=== PATIENT | male | born 1960 | race Caucasian/White ===

== ENCOUNTER → 2016-10-22 | Outpatient (CLI) | payer BC ==
[2015-11-18 01:55] VITALS: BP 143/90
--- NOTE | 2016-10-22 11:31 | CT ---
HISTORY: Low back pain, hematuria, left lower quadrant pain. Study: CT abdomen and pelvis without contrast Comparison: None. Technique: Multiple axial images of the abdomen and pelvis were obtained from the lung bases to the pubic symph ysis without the administration of IV contrast. Dose reduction techniques including Automated Expos ure Control (AEC) and adjustment of mA and kV were utilized. Findings: Calcified pulmonary nodules within the posterior right lower lobe consistent with old granulomatous disease. Otherwise, the visualized portions of the lung bases are unremarkable. Too small to charac terize hypodense lesions within the liver. The visualized liver otherwise appears normal. The pancre as, spleen, adrenal glands, and left kidney appear normal. Marked perinephric stranding is seen abou t the right kidney with mild hydronephrosis and hydroureter ureter. There is a 5 mm right distal ure ter stone. The gallbladder is unremarkable in its CT appearance. No significant mesenteric lymphade nopathy or stranding can be observed. No free fluid or free air is seen within the abdomen. The vi sualized large and small bowel demonstrate a normal noncontrast appearance. Punctate calcifications within the prostate gland that is otherwise unremarkable. The urinary bladder is grossly unremarkabl e. Multiple suspicious appearing sclerotic bone lesions within the sacrum and right iliac bone. Part ially visualized left hip hardware. Remaining osseous structures appear normal for age. IMPRESSION: 1. Right distal 5 mm ureteral stone causing associated mild hydronephrosis and mild hydroureter. 2. Multiple suspicious sclerotic bone lesions within the sacrum and right iliac bone concerning for metastatic disease such as prostate cancer. Recommend clinical and laboratory correlation. Reported By:
== END | disposition home or self-care (01) ==
LOC: RAD 10:28
PROVIDERS: ATTEND Internal Medicine
DX: R10.32 Left lower quadrant pain (principal); M54.5 Low back pain; R31.9 Hematuria, unspecified; N20.1 Calculus of ureter
CPT/HCPCS: 74176

== ENCOUNTER → 2016-10-26 | Outpatient (CLI) | payer BC ==
[2015-11-18 01:55] VITALS: BP 143/90
[~2016-10-26] MED LIST: NS 100 ML IV 100 ML IV ONE
[2016-10-26 10:20] LABS: CREATININE 1.1 mg/dL (0.70-1.30)
--- NOTE | 2016-10-26 11:16 | CT ---
HISTORY: Hematuria and low back pain and distal right ureteral calculus Study: CT abdomen and pelvis with IV and oral contrast Comparison: October 22, 2016 Technique: Multiple axial images of the abdomen and pelvis were obtained from the lung bases to the pubic symph ysis with the administration of IV contrast. Sagittal and coronal reformations were provided. Findings: There is a tiny calcified granuloma at the right lung base posteriorly. There are small low-atten uation lesions in the right lobe of the liver likely representing tiny cysts. The spleen measures up to 15 centimeters sagittal length. The pancreas and adrenal glands and kidneys are unremarkable. Th ere is minimal dilatation of the right ureter secondary to a 5 millimeter calculus in the distal rig ht ureter, unchanged from October 22.. The gallbladder is unremarkable in its CT appearance. No signi ficant mesenteric lymphadenopathy or stranding can be observed. No free fluid or free air is seen w ithin the abdomen. No bowel wall thickening or bowel dilatation is present. The colon is unremarka ble. Specifically, there is no diverticulosis noted within the sigmoid colon. The prostate measures 5.34 centimeters transverse diameter, mildly elevating the base of the urinary bladder. The bladder is otherwise unremarkable. As before there are multiple sclerotic blastic lesions in the left sacr um and bilateral iliac bones. There is severe degenerative changes of the lumbar spine primarily at L2-3 and L3-4. IMPRESSION: 1. Persistent distal right ureteral 5 millimeter calculus causing mild right hydroureter 2. Enlarged prostate elevating the base of the bladder 3. Multiple blastic lesions in the iliac bones and sacrum, suspicious for metastatic disease 4. Mild splenomegaly Reported By:
== END ==
LOC: RAD 09:33
PROVIDERS: ATTEND Internal Medicine
DX: R93.8 Abnormal findings on diagnostic imaging of other specified body structures (principal); M89.8X8 Other specified disorders of bone, other site; R31.9 Hematuria, unspecified; M54.5 Low back pain; M54.6 Pain in thoracic spine
CPT/HCPCS: 36415; 74177; 82565; 84520; A4222

== ENCOUNTER → 2016-10-28 | Outpatient (CLI) | payer BC ==
[2015-11-18 01:55] VITALS: BP 143/90
--- NOTE | 2016-10-28 13:34 | NM ---
BONE SCAN CLINICAL INDICATION: Sclerotic pelvic lesions on CT PROCEDURE: Approximately 2-4 hours following intravenous administration of 25 mCi of [id number], wh ole body delayed planar images were obtained from the anterior and posterior projections. COMPARISON: None FINDINGS: There is normal by distribution of the radiotracer within the axial and appendicular skeleton. There is normal by distribution of the radiotracer within the genitourinary system and soft tissues. IMPRESSION: 1. Normal bone scan. Bony metastatic disease is disfavored. Reported By:
== END ==
LOC: RAD 07:57
PROVIDERS: ATTEND Internal Medicine
DX: R93.8 Abnormal findings on diagnostic imaging of other specified body structures (principal); M89.9 Disorder of bone, unspecified; R31.9 Hematuria, unspecified; M54.5 Low back pain; M54.6 Pain in thoracic spine
CPT/HCPCS: 36415; 78306; 82330; 84153; 84154; 84165; 86140